=== PATIENT | female | born 1935 | race Caucasian/White ===

== ENCOUNTER 2016-09-18 15:34 | Emergency (ER) | payer OTHER ==
[2016-09-18 15:40] VITALS: PULSE 65; O2SAT 96
[2016-09-18] MEDS ORDERED: TDAP ADULT 0.5 ML INJ (BOOSTRIX) IM ONE (15:57)
--- NOTE | 2016-09-18 17:04 | EDPHY ---
H & P Time Seen by Provider: 09/18/16 15:50 HPI/ROS: This patient tried to get an item out of her dalmation's mouth shortly prior to arrival in the dog and bit her left 2nd finger tip with moderate pain bleeding from associated laceration. She denies any other associated symptoms. No exacerbating factors except some reduction of bleeding with direct pressure prior to arrival. ROS: Neuro: No numbness. Musculoskeletal: No difficulty moving the affected finger. No other associated injuries. 5 point ROS is otherwise negative. Past Medical/Surgical History: She does not recall her last tetanus shot but thinks she is overdue. Smoking Status: Never smoked Physical Exam: Physical Exam Vital signs are normal. General: No acute distress HEENT: Atraumatic. Eyes: Pupils equal and react to light. Extraocular motions are intact. Lungs: No respiratory distress. Cardiac: Brisk capillary refill is intact throughout. Pulses are 2+ and symmetric in the affected extremity. Skin: No rash or pallor. Extremities: Atraumatic normal except for left 2nd finger Left 2nd/index finger exam reveals a full-thickness laceration to the distal phalanx palmar aspect with moderate bleeding 1.5 cm in length Neuro: Alert and oriented x3 with no sensorimotor deficits. Constitutional: Initial Vital Signs Temperature (C) 37.2 C 09/18/16 15:37 Heart Rate 65 09/18/16 15:37 Blood Pressure 139/72 H 09/18/16 15:37 O2 Sat (%) 96 09/18/16 15:37 O2 Delivery Mode Room Air Allergies/Adverse Reactions: bacitracin [From Neosporin (fla-egu-[id number])] Allergy (Intermediate, Verified 07/06 15:41) Rash neomycin sulfate [From Neosporin (dxn-ddc-jeusm)] Allergy (Intermediate, Verified 09/18/16 15:41) Rash polymyxin B [From Neosporin (aba-odm-smpcg)] Allergy (Intermediate, Verified 07/06 15:41) Rash bacitracin zinc [From Neosporin (car-igd-cicfd)] Allergy (Verified 12/26/15 11: 38) hydrochlorothiazide Allergy (Verified 12/26/15 11:38) nickel Allergy (Verified 12/26/15 11:38) nitrofurantoin [From Furadantin] Allergy (Verified 12/26/15 11:38) Home Medications: Medication Instructions Recorded Marika Allergy 10/21/15 Amlodipine Besylate 10/21/15 CeleBREX 10/21/15 Exforge 10-320 mg Tablet 10/21/15 Lexapro 10/21/15 Medroxyprogesterone 10/21/15 PREMARIN 10/21/15 Synthroid 10/21/15 traMADOL 10/21/15 Amox Tr/K Clav (Augmentin) 500 mg PO TID #15 tab 09/18/16 [Augmentin 500/125 MG TAB (*)] MDM/Departure - MDM Diagnostics: Finger x-ray: Negative by my interpretation for fracture. 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 Imaging: I viewed and interpreted images myself Procedures: Digital block: After verbal consent, using a 2% plain lidocaine, 27 gauge needle, chlorhexidine scrub under sterile conditions-3 injections were administered to the base of the affected finger, 8 mL with good effect. Patient tolerated this well. There were no complications. The wound is 1.5 cm full-thickness distal phalanx of 2nd finger with moderate bleeding. Subcutaneous tissues evident but no deeper structures appear to be injured.. The wound was copiously irrigated with saline. The wound was explored for foreign bodies and none were found. The wound was prepped and draped in the normal sterile fashion. I used a Kiera drain as a tourniquet during the procedure due to pulsatile bleeder. This achieved a clean field to suture. The edges were reapproximated using 4 0 Prolene, P3 needle-9 running sutures and 1 interrupted suture with good hemostasis and cosmesis. The patient tolerated the procedure well. There were no complications. After the procedure I removed the Kiera drain which was on for approximately 20 minutes with mild bleeding from the wound but no pulsatile bleeding. Patient is placed in a tube gauze dressing and elevate the hand. I counseled regarding wound care. Medications Given: Discontinued Medications Diphtheria/Tetanus/Acell Pertussis (Boostrix) 0.5 ml IM .ONCE ONE Stop: 09/18/16 15:58 Last Admin: 09/18/16 16:04 Dose: 0.5 ml ED Course/Re-evaluation: Discussion: Patient with significant soft tissue laceration from dog bite but no evidence of bony injury, foreign body or other complicating factors. Will cover her with Augmentin antibiotic - Depart Disposition: Home, Routine, Self-Care Clinical Impression: Dog bite of finger Qualifiers: Encounter type: initial encounter Qualified Code(s): S61.259A - Open bite of unspecified finger without damage to nail, initial encounter Finger laceration Qualifiers: Encounter type: initial encounter Qualified Code(s): S61.219A - Laceration without foreign body of unspecified finger without damage to nail, initial encounter Condition: Good Instructions: Animal Bite (ED), Finger Laceration (ED) Additional Instructions: Diagnoses: 1. Dog bite of finger 2. Finger laceration Plan: Keep the wound clean and dry for the next 2 days elevate the finger as much as possible After that, remove the dressing and clean daily with warm soapy water Tylenol and Celebrex for pain as needed Augmentin antibiotic as prescribed Return for suture removal in 10-12 days Return sooner for redness, discharge or other concerns for infection. Prescriptions: Amox Tr/K Clav (Augmentin) [Augmentin 500/125 MG TAB (*)] 500 mg PO TID #15 tab Referrals: Jorge Dawn MD [Primary Care Provider] - As per Instructions
[2016-09-18 17:51] VITALS: BP 132/78; RESP 16; TEMP 98.4
== END 2016-09-18 17:42 | disposition home or self-care (01) ==
LOC: CED 15:34
PROC: 0HQGXZZ Repair Left Hand Skin, External Approach (ICD-10-PCS; principal; 2016-09-18)
DX: S61.211A Laceration without foreign body of left index finger without damage to nail, initial encounter (principal); Z23 Encounter for immunization; W54.0XXA Bitten by dog, initial encounter
CPT/HCPCS: 73140-PO

== ENCOUNTER 2016-10-14 10:44 | Emergency (ER) | payer OTHER ==
--- NOTE | 2016-10-14 11:29 | EDPHY ---
H & P Time Seen by Provider: 10/14/16 11:05 HPI/ROS: CHIEF COMPLAINT: Finger infection HISTORY OF PRESENT ILLNESS: 81-year-old female presents to the emergency department with a persistent and worsening finger infection. Patient reports on September 19 she was bit on the index finger by her own dog. Laceration was repaired and the patient was placed on Augmentin. She took 3 days of the Augmentin and then was unable to tolerate it secondary to abdominal discomfort. Her primary care physician advises warm soaks only and no further antibiotic treatment. Patient continued with warm soaks but the finger was becoming gradually more swollen, red, and weeping. 6 days ago she saw her primary care physician again was placed on Keflex. Pain she presents today with concerns that the redness has continued to expand and now has started to spread onto the middle finger. No fever. Small amount of drainage has been present in weeping across the pad of the finger and around the nail. REVIEW OF SYSTEMS: Aside from elements discussed in the HPI, a comprehensive 10-point review of systems was reviewed and is negative. PAST MEDICAL HISTORY: Hypertension, arthritis, hypothyroid. No diabetes. SOCIAL HISTORY: . GENERAL APPEARANCE: Pleasant, well-developed, no acute distress. FOCUSED EXAM OF left hand: Index finger is swollen from the tip to the proximal phalanx. Distal phalanx is swollen, erythematous, warm, and weeping. Erythema spreads across the middle phalanx and onto the proximal phalanx along the ulnar aspect with papular erythema. Multiple small papules are present. There is an area faint erythema and papules on the proximal phalanx of the middle finger. Finger tip is diffusely tender no focal abscess. Neurovascular exam: Good capillary refill, normal motor exam, normal neurologic exam. No discomfort with flexion or extension. Smoking Status: Never smoked Constitutional: Initial Vital Signs Heart Rate 68 10/14/16 10:56 Respiratory Rate 18 10/14/16 10:56 Blood Pressure 171/80 H 10/14/16 10:56 O2 Sat (%) 96 10/14/16 10:56 O2 Delivery Mode Room Air Allergies/Adverse Reactions: bacitracin [From Neosporin (llg-ehy-psodn)] Allergy (Intermediate, Verified 07/06 15:41) Rash neomycin sulfate [From Neosporin (xca-itk-kfyxd)] Allergy (Intermediate, Verified 09/18/16 15:41) Rash polymyxin B [From Neosporin (wfh-mfz-iodzc)] Allergy (Intermediate, Verified 07/06 15:41) Rash amoxicillin [From Augmentin] Allergy (Verified 10/14/16 12:54) bacitracin zinc [From Neosporin (dan-bvz-zgodd)] Allergy (Verified 12/26/15 11: 38) clavulanic acid [From Augmentin] Allergy (Verified 10/14/16 12:54) hydrochlorothiazide Allergy (Verified 12/26/15 11:38) nickel Allergy (Verified 12/26/15 11:38) nitrofurantoin [From Furadantin] Allergy (Verified 12/26/15 11:38) Home Medications: Medication Instructions Recorded Marika Allergy 10/21/15 Amlodipine Besylate 10/21/15 CeleBREX 10/21/15 Exforge 10-320 mg Tablet 10/21/15 Lexapro 10/21/15 Medroxyprogesterone 10/21/15 PREMARIN 10/21/15 Synthroid 10/21/15 traMADOL 10/21/15 Keflex 10/14/16 MDM/Departure - MDM ED Course/Re-evaluation: 81-year-old female with a persistent left index finger infection. On examination the finger has diffuse weeping and dumont colored discharge, concerning for staph type of an infection. However there are also areas of papules which appeared to be a contact dermatitis. Patient is allergic to topical antibiotic cream but states that she has non in the house and has been using a dry dressing only. Patient's course was discussed with Dr. Alethea Singh from Infectious Disease. Concern is raised for the possibility of an osteomyelitis. Depth of the initial bite laceration is documented as being full-thickness but no deep structures are involved. Patient reports that the bite was "to the bone". Patient will be referred to [facility] Emergency Department to obtain an MRI. If the MRI demonstrates osteomyelitis patient will need IV antibiotic therapy initiated. Dr. Singh from Infectious Disease will evaluate the patient on her arrival to [facility]'s emergency department for further consultation and disposition. I do not believe the patient has an abscess which requires drainage at this time. Please note: Patient was discharged from the [facility] Emergency Department and proceeded to the [facility] Emergency Department. The discharge information contained in this chart represents the discharge from [facility]. Differential Diagnosis: Differential diagnoses for the patient's symptom complex was considered including but not limited to cellulitis, felon, paronychia, contact dermatitis, osteomyelitis. - Depart Disposition: Home, Routine, Self-Care Clinical Impression: Contact dermatitis Qualifiers: Contact dermatitis type: allergic Contact dermatitis trigger: drugs in contact with skin Qualified Code(s): L23.3 - Allergic contact dermatitis due to drugs in contact with skin Condition: Good Instructions: Contact Dermatitis (ED) Additional Instructions: Stop taking the Keflex. Do not soak or apply any lotions to the finger. Keep the finger wrapped in dry gauze. Followup with Dr. Singh, Infectious Disease. Referrals: Alethea Singh MD [Medical Doctor] - As per Instructions (Infectious Disease)
[2016-10-14 12:32] LABS: ADD DIFF? YES; ADD MORPH? NO; ADD SCAN? NO; ATYPICAL LYMPHOCYTE FLAG 0 (0-99); FRAGMENT RBC FLAG 0 (0-99); HEMATOCRIT 43.3 % (38.0-47.0); HEMOGLOBIN 14.8 g/dL (12.6-16.3); LEFT SHIFT FLG 0 (0-99); LIPEMIA HEMOLYSIS FLAG 90 (0-99); MEAN CELL HEMOGLOBIN CONCENTR. 34.2 g/dL (32.4-36.7); MEAN CELL VOLUME 84.9 fL (81.5-99.8); MEAN PLATELET VOLUME 11.7 fL (8.7-11.7); PLATELET CLUMPS FLAG 0 (0-99); PLATELET COUNT 85 10^3/uL (150-400); RED CELL DISTRIBUTION WIDTH 13.4 % (11.5-15.2)
[2016-10-14 12:34] LABS: ANION GAP 13 mEq/L (8-16); CALCIUM 9.7 mg/dL (8.5-10.4); CARBON DIOXIDE 23 mEq/l (22-31); CHLORIDE 104 mEq/L (97-110); CREATININE 0.7 mg/dL (0.6-1.0); GLOMERULAR FILTRATION RATE > 60; GLUCOSE 79 mg/dL (70-100); POTASSIUM 4.1 mEq/L (3.5-5.2); SODIUM 140 mEq/L (134-144)
[2016-10-14 12:56] VITALS: TEMP 97.9
[2016-10-14 13:10] LABS: PLATELET ESTIMATE DECREASED (ADEQ)
--- NOTE | 2016-10-14 13:33 | EDPHY ---
H & P Smoking Status: Never smoked Time Seen by Provider: 10/14/16 11:14 HPI/ROS: CHIEF COMPLAINT: Finger swelling HISTORY OF PRESENT ILLNESS: The patient is an 81-year-old female that sustained a dog bite to her left index finger on 09/18. She was seen at [place] and had sutures placed. She was started on Augmentin but was unable to tolerate the Augmentin and was placed on Keflex. She has been on Keflex for 6 days now. Her finger has increased in redness, swelling, and started weeping. She states the finger itches and only complains of pain when the hand is not elevated. She denies fever. ROS: No numbness, weakness, excessive bleeding, syncopal episode, other injury. (Kim Solomon) Past Medical/Surgical History: Hypertension, Arthritis, Hypothyroid (Kim Solomon) Social History: . (Kim Solomon) Physical Exam: Alert and oriented x3, no acute distress Left index finger: Mild erythema without tenderness of the finger tip. Multiple small vesicles on the entire digit. Full range of motion of finger without pain. Neuro: Motor and sensory intact Vascular: Capillary refill brisk distally (Kim Solomon) Constitutional: Initial Vital Signs Heart Rate 68 10/14/16 10:56 Respiratory Rate 18 10/14/16 10:56 Blood Pressure 171/80 H 10/14/16 10:56 O2 Sat (%) 96 10/14/16 10:56 O2 Delivery Mode Room Air Allergies/Adverse Reactions: bacitracin [From Neosporin (wdq-qoq-uurak)] Allergy (Intermediate, Verified 07/06 15:41) Rash neomycin sulfate [From Neosporin (ovg-xgs-vniqj)] Allergy (Intermediate, Verified 09/18/16 15:41) Rash polymyxin B [From Neosporin (tbm-mwd-nlqzd)] Allergy (Intermediate, Verified 07/06 15:41) Rash amoxicillin [From Augmentin] Allergy (Verified 10/14/16 12:54) bacitracin zinc [From Neosporin (cay-sdg-yynlx)] Allergy (Verified 12/26/15 11: 38) clavulanic acid [From Augmentin] Allergy (Verified 10/14/16 12:54) hydrochlorothiazide Allergy (Verified 12/26/15 11:38) nickel Allergy (Verified 12/26/15 11:38) nitrofurantoin [From Furadantin] Allergy (Verified 12/26/15 11:38) Home Medications: Medication Instructions Recorded Marika Allergy 10/21/15 Amlodipine Besylate 10/21/15 CeleBREX 10/21/15 Exforge 10-320 mg Tablet 10/21/15 Lexapro 10/21/15 Medroxyprogesterone 10/21/15 PREMARIN 10/21/15 Synthroid 10/21/15 traMADOL 10/21/15 Keflex 10/14/16 Medical Decision Making - Diagnostics Imaging Results: Imaging Impressions Upper Extremity MRI 10/14/16 12:03 Impression: 1. Suspect osteomyelitis of the distal phalanx and distal aspect of the middle phalanx with possible infected distal interphalangeal joint space. 2. Diffuse cellulitis. No abscess. Comment: The imaging was reviewed with Dr. Alethea Singh shortly after study completion. ED Course/Re-evaluation: The patient was sent here from [place] with left index swelling, redness, and weeping after sutured dog bite 09/18. The finger looks more like a contact dermatitis instead of infection. She is allergic to Neosporin, but does not have any in her house nor has she put anything on her finger except a dry bandage. I spoke to Dr. Singh with infectious disease, she will assess the patient in the ED. Labs are unremarkable. WBC is normal. The patient was evaluated by Dr. Singh, she would like to continue with the MRI and discontinue Keflex. Patient is safe for discharge home. (Kim Solomon) 4:[address] Singh is here evaluating the patient. We have reviewed her MRI. She does have osteomyelitis. She is requesting a PICC line and Invanz and that the patient return here for Invanz every 24 hours until that can be seen in the infusion clinic. Patient is agreeable to this. They do not require admission. 8:45 p.m. the patient's PICC line Keppra oozing blood. Whose eventually undressed and a figure 8 suture placed around the exit. This controlled the bleeding. The Biopatch was replaced and the clip was replaced and covered with Tegaderm in sterile fashion. (Emilio Coker) Differential Diagnosis: Partial list of the Differential diagnosis considered include but were not limited to; osteomyelitis, cellulitis, contact dermatitis and although unlikely based on the history and physical exam, I also considered joint infection, fracture. (Emilio Coker) - Data Points Laboratory Results: Laboratory Results 10/14/16 12:10 10/14/16 12:10 10/14/16 10/14/16 10/14/16 17:35 12:10 12:10 WBC 5.68 10^3/uL 10^3/uL (3.80-9.50) RBC 5.10 10^6/uL 10^6/uL (4.18-5.33) Hgb 14.8 g/dL g/dL (12.6-16.3) Hct 43.3 % % (38.0-47.0) MCV 84.9 fL fL (81.5-99.8) MCH 29.0 pg pg (27.9-34.1) MCHC 34.2 g/dL g/dL (32.4-36.7) RDW 13.4 % % (11.5-15.2) Plt Count 85 10^3/uL L 10^3/uL (150-400) MPV 11.7 fL fL (8.7-11.7) Neut % (Auto) Not Reported Lymph % (Auto) Not Reported Pratt % (Auto) Not Reported Eos % (Auto) Not Reported Baso % (Auto) Not Reported Nucleat RBC Rel Count 0.0 % % (0.0-0.2) Absolute Neuts (auto) Not Reported Absolute Lymphs (auto) Not Reported Absolute Monos (auto) Not Reported Absolute Eos (auto) Not Reported Absolute Basos (auto) Not Reported Absolute Nucleated RBC 0.00 10^3/uL 10^3/uL (0-0.01) Immature Gran % Not Reported Seg Neutrophils % 34 % % Band Neutrophils % 2 % % Lymphocytes % 44 % % Monocytes % 20 % % Immature Gran # Not Reported Absolute Seg Neuts 1.9 K/MM3 K/MM3 (1.8-7) Absolute Band Neuts 0.1 K/MM3 K/MM3 (0-0.7) Absolute Lymphocytes 2.5 K/mm3 K/mm3 (1.0-4.8) Absolute Monocytes 1.1 K/mm3 H K/mm3 (0-0.8) Atypical Lymphocytes 1+ H Platelet Estimate DECREASED L (ADEQ) ESR Sodium 140 mEq/L mEq/L (134-144) Potassium 4.1 mEq/L mEq/L (3.5-5.2) Chloride 104 mEq/L mEq/L (97-110) Carbon Dioxide 23 mEq/l mEq/l (22-31) Anion Gap 13 mEq/L mEq/L (8-16) BUN 13 mg/dL mg/dL (7-23) Creatinine 0.7 mg/dL mg/dL (0.6-1.0) Estimated GFR > 60 Glucose 79 mg/dL mg/dL (70-100) Calcium 9.7 mg/dL mg/dL (8.5-10.4) C-Reactive Protein 7.3 mg/L mg/L (<10.0) 10/14/16 12:00 WBC RBC Hgb Hct 43.3 % % (38.0-47.0) MCV MCH MCHC RDW Plt Count MPV Neut % (Auto) Lymph % (Auto) Pratt % (Auto) Eos % (Auto) Baso % (Auto) Nucleat RBC Rel Count Absolute Neuts (auto) Absolute Lymphs (auto) Absolute Monos (auto) Absolute Eos (auto) Absolute Basos (auto) Absolute Nucleated RBC Immature Gran % Seg Neutrophils % Band Neutrophils % Lymphocytes % Monocytes % Immature Gran # Absolute Seg Neuts Absolute Band Neuts Absolute Lymphocytes Absolute Monocytes Atypical Lymphocytes Platelet Estimate ESR 3 MM/HR MM/HR (0-30) Sodium Potassium Chloride Carbon Dioxide Anion Gap BUN Creatinine Estimated GFR Glucose Calcium C-Reactive Protein Medications Given: Discontinued Medications Ertapenem 1 gm/ Sodium (Chloride) 100 mls @ 200 mls/hr IV EDNOW ONE PRN Reason: Protocol Stop: 10/14/16 16:58 Last Admin: 10/14/16 18:36 Dose: 100 mls Departure - Departure Disposition: Home, Routine, Self-Care Clinical Impression: Osteomyelitis Qualifiers: Osteomyelitis type: unspecified type Osteomyelitis location: hand Laterality: left Qualified Code(s): M86.9 - Osteomyelitis, unspecified Condition: Good Instructions: Osteomyelitis (ED) Additional Instructions: Return every 24 hours for a infusion of Invanz until you can be seen in the Infectious Disease Clinic to have your infusion there. Referrals: Alethea Singh MD [Medical Doctor] - As per Instructions (Infectious Disease) Report Scribed for: Kim Solomon Report Scribed by: Lissa Hemphill Date of Report: 10/14/16 Time of Report: 13:36 Physician Review and Approval Statement: 10/14/16 13:36 Portions of this note were transcribed by a director of medical staff services. I personally performed the history, physical exam, and medical decision-making; and confirmed the accuracy of the information in the transcribed note. (Kim Solomon)
--- NOTE | 2016-10-14 15:02 | GCON ---
[f rep st] CONSULTATION INFECTIOUS DISEASE CONSULT DATE OF CONSULTATION: 10/14/2016 REFERRING PHYSICIAN: Kim Solomon MD REASON FOR CONSULT: To assist in the management of this 81-year-old female with persistent left hand 2nd digit swelling after sustaining a dog bite earlier this month. HISTORY OF PRESENT ILLNESS: This patient is an 81-year-old female whose previous medical history is notable for the followin. Hypothyroidism. 2. Osteoarthritis. 3. History of thrombocytopenia. Regarding her present issue, the patient states that she has a dalmatian (the patient actually has 2 dalmatians) at home, and on September 18, 2016 she noticed that one of her dogs was chewing on something that she did not recognize. She put her hand into the dog's mouth to remove the object, and at that moment, the dog bit down on the object, biting her 2nd finger. The dog did not mean to bite her , per se. She removed her hand, and came to [facility] where she was found to have a full thickness laceration to the distal phalanx, palmar aspect of the left 2nd index finger. The incision was approximately 5 cm in length. This was copiously irrigated by Dr. Hemant Zepeda, and his notes describe the wound as the following: "Subcutaneous tissues were evident, but no deeper structures appeared to be injured." The wound was explored for foreign bodies and none were found. It was copiously cleaned and sutured with good hemostasis. An x-ray revealed no foreign body either. The patient was given a tetanus booster and a prescription for Augmentin 500 mg p.o. three times daily. The patient was referred back to her primary care doctor, Dr. Dawn. The patient states that she took the Augmentin 500 mg p.o. three times daily for approximately 3 days, but became nauseated from it. She saw her primary care doctor, who took her off antibiotics and told her to soak it only. She did this 4-5 times per day for 5 minutes at a time. She states that when she soaked it that her finger looked worse, with increasing erythema. 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 She states that she has also been using different lotions on the finger, including Jergens, Oil of Olay, Curel, etc. She does have a history of an allergy to bacitracin and Neosporin, so has not been using this. She has been using Telfa Band-Aids from the grocery store. She does not know whether or not these are impregnated with antibiotics. She has not used these Band-Aids in the past. She states that she went back to her primary care doctor on approximately September out of concern for ongoing swelling. He started her on Keflex 500 mg 4 times a day. She has been on this now for 6 days with no change. She has also noticed the development of a small vesicular pruritic eruption along the inner aspect, lateral side of her 2nd digit. She states that the digit itself is pruritic. She has not had fevers or chills, but states that the finger remains swollen and has not really improved. Because of that, the patient came to [facility] this morning, and I was contacted on the phone by Dr. Catherine Rushing. I recommended an MRI, given what I was told of the patient's history, and the patient is now here in [facility] Emergency Department. She has not yet had the MRI. The patient is otherwise feeling well. Otherwise, the patient states that she has been in good health. She had a dental implant placed 5 days ago. REVIEW OF SYSTEMS: Aside from what is outlined above, 10 systems are reviewed and all are negative. PREVIOUS MEDICAL HISTORY: As outlined above. ALLERGIES: Bacitracin, neomycin, polymyxin B, hydrochlorothiazide, nickel, nitrofurantoin. MEDICATIONS: Include Keflex 500 mg p.o. four times daily, Marika, amlodipine, Lexapro, Premarin, Synthroid and tramadol. SOCIAL HISTORY: The patient is and lives in [place]. She has 2 dalmatians. No tobacco, alcohol or illicit substances. No recent travel within or outside the [place]. She has not had her hands in any dirt or water, other than tap water from her home. IMAGING: Finger x-ray, as outlined above from September 18, 2016, showed no foreign body. IMPRESSION: 81-year-old female status post reported superficial dog bite on September 18, 2016 to the distal phalanx of the left 2nd digit. This was copiously cleaned and sutured, without evidence of deeper structure involvement. She took 3 days of Augmentin, which was discontinued secondary to nausea and vomiting. She has been soaking it for the past 2 weeks, but because of lack of improvement, was restarted on antibiotics in the form of Keflex that she has taken for the past 6 days without change in appearance of the finger, per se. She now presents with an ongoing swollen digit with some dusky erythema, but minimal tenderness. She also appears to have an allergic phenomenon of the skin with an irritant contact dermatitis with pruritic papules along the inner aspect of her finger. This could be related to the lotions she is using or Band-Aids. This does not look consistent with herpetic darlene. No tenosynovitis, clinically. At this point in time, I do feel that it is prudent to obtain an MRI to rule out deeper structural involvement of the finger given the prolonged swelling. That being said, I would expect the patient to have a more severe presentation if she had ongoing deeper nidus of infection with pasteurella, anaerobes, staphylococci or streptococci. Notably, she is not immunocompromised, other than her age. PLAN: 1. Obtain MRI to ensure there is no deeper structural involvement. 2. If MRI is negative, would stop antibiotics and continue with arm elevation, and discontinue all lotions and bandages other than gauze. 3. We will have the patient seen in our outpatient clinic. 4. Tetanus is up to date. Thank you very much for consulting Infectious Diseases. /[id number]/MODL OSMAN
[2016-10-14] MEDS ORDERED: GADOBUTROL 10 ML VIAL IVP ONE (15:24)
[2016-10-14] MEDS ORDERED: ERTAPENEM 1 GM in NS 100 ML IV ONE (16:29)
[2016-10-14 17:36] VITALS: O2SAT 95
[2016-10-14] MEDS ORDERED: ALTEPLASE 2 MG VIAL IVP PRN (17:38)
[2016-10-14 17:55] LABS: HEMATOCRIT 43.3 % (38.0-47.0)
[2016-10-14 21:37] VITALS: BP 137/77; PULSE 72; RESP 18
== END 2016-10-14 21:15 | disposition home or self-care (01) ==
LOC: CED 10:44
DX: M86.9 Osteomyelitis, unspecified (principal); I10 Essential (primary) hypertension
CPT/HCPCS: 73220; 77001; 96365; 99285; A9585; C1751; J1335; 80048-PO; 85025-PO

== ENCOUNTER 2016-10-15 03:18 | Emergency (ER) | payer OTHER ==
[2016-10-15 03:24] VITALS: BP 155/63; PULSE 61; RESP 16; TEMP 97.5; O2SAT 98
--- NOTE | 2016-10-15 04:20 | EDPHY ---
H & P Stated Complaint: PICC line incerted last night, bleeding at incertion site Time Seen by Provider: 10/15/16 03:46 HPI/ROS: HPI The patient presents with bleeding from her right upper extremity PICC line which was placed yesterday afternoon. She initially had some bleeding after the placement and a [id number] suture was placed. She went home and there was no bleeding, however awoke this morning with bleeding, which now seems to have stopped. She does have thrombocytopenia. The PICC line was placed for osteomyelitis of her digit. REVIEW OF SYSTEMS Constitutional: No fever, no chills. Skin: No rashes. Neurological: No headache. PMHx: Osteomyelitis of her digit receiving antibiotics currently Soc Hx: Lives at home with her PHYSICAL General Appearance: Alert, no distress Eyes: Pupils equal and round Respiratory: Breathing comfortably Neurological: A&O, moves all extremities Skin: Warm and dry, no rashes Extremities: Right upper extremity with PICC line in place, there is a large amount of blood clot under her Tegaderm dressing which measures about 3 x 3 cm, no active bleeding is appreciated, there are no skin changes Psychiatric: Patient is oriented X 3, there is no agitation Source: Patient Exam Limitations: No limitations - Personal History Current Tetanus/Diphtheria Vaccine: Yes Current Tetanus Diphtheria and Acellular Pertussis (TDAP): Yes Tetanus Vaccine Date: 2016 - Medical/Surgical History Hx Asthma: No Hx Chronic Respiratory Disease: No Hx Diabetes: No Hx Cardiac Disease: No Hx Renal Disease: No Hx Cirrhosis: No Hx Alcoholism: No Hx HIV/AIDS: No Hx Splenectomy or Spleen Trauma: No Other PMH: HTN, arthritis, hypothyroid. - Social History Smoking Status: Never smoked Constitutional: Initial Vital Signs Temperature (C) 36.4 C 10/15/16 03:22 Heart Rate 61 10/15/16 03:22 Respiratory Rate 16 10/15/16 03:22 Blood Pressure 155/63 H 10/15/16 03:22 O2 Sat (%) 98 10/15/16 03:22 O2 Delivery Mode Room Air Allergies/Adverse Reactions: bacitracin [From Neosporin ([id number]-imd-[id number])] Allergy (Intermediate, Verified 16:04) Rash neomycin sulfate [From Neosporin (mni-syz-jaato)] Allergy (Intermediate, Verified 10/16/16 16:04) Rash polymyxin B [From Neosporin ([id number]-ump-[id number])] Allergy (Intermediate, Verified 16:04) Rash amoxicillin [From Augmentin] Allergy (Verified 10/16/16 16:04) bacitracin zinc [From Neosporin (vlb-hwv-brork)] Allergy (Verified 10/16/16 16: 04) clavulanic acid [From Augmentin] Allergy (Verified 10/16/16 16:04) hydrochlorothiazide Allergy (Verified 10/16/16 16:04) nickel Allergy (Verified 10/16/16 16:04) nitrofurantoin [From Furadantin] Allergy (Verified 10/16/16 16:04) Home Medications: Medication Instructions Recorded Marika Allergy 10/21/15 Amlodipine Besylate 10/21/15 CeleBREX 10/21/15 Exforge 10-320 mg Tablet 10/21/15 Lexapro 10/21/15 Medroxyprogesterone 10/21/15 PREMARIN 10/21/15 Synthroid 10/21/15 traMADOL 10/21/15 Keflex 10/14/16 Medical Decision Making Differential Diagnosis: This is an 81-year-old female with PICC line insertion yesterday, history of thrombocytopenia, with bleeding at the site of her PICC line. On exam, the bleeding is now controlled, however there is quite a bit of clotted blood surrounding the insertion site. In the emergency room, the dressing was removed, the clot was removed as well. Surgical foam was used around the insertion site to prevent any future bleeding. I was not able to place the Biopatch at this time, however the patient will return to the emergency room this evening for her 2nd antibiotic dose at that time a new Biopatch can be placed once the foam has absorbed somewhat. There are no signs of PICC line infection at this time. Departure - Departure Disposition: Home, Routine, Self-Care Clinical Impression: Bleeding from PICC line Condition: Good Instructions: Peripherally Inserted Central Catheters and Midline Catheters (ED ) Referrals: Jorge Dawn MD [Primary Care Provider] - As per Instructions
== END 2016-10-15 04:54 | disposition home or self-care (01) ==
DX: T82.838A Hemorrhage due to vascular prosthetic devices, implants and grafts, initial encounter (principal); I10 Essential (primary) hypertension; Y82.8 Other medical devices associated with adverse incidents

== ENCOUNTER 2016-10-15 16:14 | Emergency (ER) | payer OTHER ==
[2016-10-15] MEDS ORDERED: ERTAPENEM 1 GM in NS 100 ML IV ONE (17:03)
--- NOTE | 2016-10-15 17:03 | EDPHY ---
H & P Smoking Status: Never smoked Time Seen by Provider: 10/15/16 16:58 HPI/ROS: CHIEF COMPLAINT: Finger swelling, here for IV Invanz HISTORY OF PRESENT ILLNESS: 81-year-old female sustained a dog bite to her left index finger on 09/18/2016. She has subsequently developed suspected osteomyelitis of the distal phalanx and distal aspect of middle phalanx of the same digit and was seen in the emergency department yesterday for same complaint , had infectious disease consultation, MRI is recommended by Infectious Disease that she be started on IV Invanz 1 g via PICC line. She received IV Invanz yesterday returns for IV Invanz today (). Patient states that she is feeling well, finger continues as before with no acute complaints. No fever no chills no nausea no vomiting. PICC line is not bleeding. PHYSICAL EXAM (Prior to examination, patient consented to physical exam, hands were washed and my usual and customary physical exam procedures followed) 1) GENERAL: Well-developed, well-nourished, alert and oriented. Appears to be in no acute distress. 2) HEAD: Normocephalic 3) HEENT: sclera anicteric 4) LUNGS: Breathing comfortably. 5) SKIN: Left index finger erythema without tenderness of the distal phalanx. Full range of motion finger without pain negative kanavel. (Lobito,Chio Vika) Constitutional: Initial Vital Signs Temperature (C) 36.5 C 10/15/16 16:15 Heart Rate 78 10/15/16 16:15 Respiratory Rate 18 10/15/16 16:15 Blood Pressure 115/57 L 10/15/16 16:15 O2 Sat (%) 96 10/15/16 16:15 O2 Delivery Mode Room Air Allergies/Adverse Reactions: bacitracin [From Neosporin (qam-adu-lvqed)] Allergy (Intermediate, Verified 16:20) Rash neomycin sulfate [From Neosporin (gmd-iih-sscxu)] Allergy (Intermediate, Verified 10/15/16 16:20) Rash polymyxin B [From Neosporin (yfc-xlt-jslbn)] Allergy (Intermediate, Verified 16:20) Rash amoxicillin [From Augmentin] Allergy (Verified 10/15/16 16:20) bacitracin zinc [From Neosporin (thv-fxp-itavs)] Allergy (Verified 10/15/16 16: 20) clavulanic acid [From Augmentin] Allergy (Verified 10/15/16 16:20) hydrochlorothiazide Allergy (Verified 10/15/16 16:20) nickel Allergy (Verified 10/15/16 16:20) nitrofurantoin [From Furadantin] Allergy (Verified 10/15/16 16:20) Home Medications: Medication Instructions Recorded Marika Allergy 10/21/15 Amlodipine Besylate 10/21/15 CeleBREX 10/21/15 Exforge 10-320 mg Tablet 10/21/15 Lexapro 10/21/15 Medroxyprogesterone 10/21/15 PREMARIN 10/21/15 Synthroid 10/21/15 traMADOL 10/21/15 Keflex 10/14/16 MDM/Departure - MDM Medications Given: Discontinued Medications Ertapenem 1 gm/ Sodium (Chloride) 100 mls @ 200 mls/hr IV EDNOW ONE PRN Reason: Protocol Stop: 10/15/16 17:32 Last Admin: 10/15/16 17:36 Dose: 100 mls ED Course/Re-evaluation: Today is holiday. Patient has received her IV Invanz 1 g. Was initially recommended she follow-up tomorrow with the [facility] however she has been informed previously by Dr. GARCIA that she may not be able to get into the clinic tomorrow for infusion due to scheduling as tomorrow is the day after . If she is unable to get an appointment in the clinic tomorrow she will return to the emergency department for IV Invanz and will receive further infusions at the [facility] . Recommend she call the clinic in the morning. Care and management in consultation with secondary supervising physician Dr Rushing who independently evaluated patient. (Chio Robin) The patient was evaluated and managed by the Physician Gas Welder/ Nurse Practitioner. [I discussed the patient's presentation and course with the midlevel provider with them and agree with the evaluation.] My co-signature indicates that I have reviewed this chart and I agree with the findings and plan of care as documented. I am the secondary supervising physician. I saw this patient yesterday primarily at the [facility] prior to her diagnosis of osteomyelitis. She reports no pain in the finger. She received a dose of IV antibiotics and will be discharged to return to begin tomorrow for her ongoing IV antibiotic therapy (Catherine Rushing) - Depart Disposition: Home, Routine, Self-Care Clinical Impression: Osteomyelitis of finger of left hand Condition: Good Instructions: Osteomyelitis (ED) Referrals: [facility] (ED,. [Edm Groups for Call Sched] - 1 day without fail (If you cannot get into the clinic tomorrow return to the ER tomorrow afternoon.)
[2016-10-15 18:42] VITALS: BP 123/67; PULSE 56; RESP 15; TEMP 97.2; O2SAT 95
== END 2016-10-15 18:42 | disposition home or self-care (01) ==
DX: M86.9 Osteomyelitis, unspecified (principal)
CPT/HCPCS: 96374; 99284; J1335

== ENCOUNTER 2016-10-16 15:48 | Emergency (ER) | payer OTHER ==
[2016-10-16 16:07] VITALS: BP 145/69; PULSE 66; RESP 17; TEMP 98.1; O2SAT 96
[2016-10-16] MEDS ORDERED: ERTAPENEM 1 GM in NS 100 ML IV ONE (17:38)
--- NOTE | 2016-10-16 18:16 | EDPHY ---
H & P Time Seen by Provider: 10/16/16 16:10 HPI/ROS: CHIEF COMPLAINT: Here for repeat IV antibiotics HISTORY OF PRESENT ILLNESS: 85-year-old female well known to myself with osteomyelitis of the left index finger following a dog bite. This is day 3 of IV antibiotics. Patient tells me she has an appointment tomorrow at [facility] in order to facilitate outpatient IV therapy. No new complaints. No fevers or chills. REVIEW OF SYSTEMS: Aside from elements discussed in the HPI, a comprehensive 10-point review of systems was reviewed and is negative. PAST MEDICAL HISTORY: Hypothyroidism SOCIAL HISTORY: . GENERAL APPEARANCE: Pleasant, alert, resting comfortably. FOCUSED EXAM OF left upper extremity: Generalized erythema of the distal phalanx, left finger. Moderate swelling of the digit. Erythema is present along the ulnar aspect of the digit. Overall appearance is slightly improved. Neurovascular exam: Good capillary refill, normal motor exam, normal neurologic exam. Smoking Status: Never smoked Constitutional: Initial Vital Signs Temperature (C) 36.7 C 10/16/16 16:05 Heart Rate 66 10/16/16 16:05 Respiratory Rate 17 10/16/16 16:05 Blood Pressure 145/69 H 10/16/16 16:05 O2 Sat (%) 96 10/16/16 16:05 O2 Delivery Mode Room Air Allergies/Adverse Reactions: bacitracin [From Neosporin ([id number]-[id number])] Allergy (Intermediate, Verified 16:04) Rash neomycin sulfate [From Neosporin (sly-ork-qumjj)] Allergy (Intermediate, Verified 10/16/16 16:04) Rash polymyxin B [From Neosporin (jra-ovp-vajml)] Allergy (Intermediate, Verified 16:04) Rash amoxicillin [From Augmentin] Allergy (Verified 10/16/16 16:04) bacitracin zinc [From Neosporin (tca-pqu-jsqqx)] Allergy (Verified 10/16/16 16: 04) clavulanic acid [From Augmentin] Allergy (Verified 10/16/16 16:04) hydrochlorothiazide Allergy (Verified 10/16/16 16:04) nickel Allergy (Verified 10/16/16 16:04) nitrofurantoin [From Furadantin] Allergy (Verified 10/16/16 16:04) Home Medications: Medication Instructions Recorded Marika Allergy 10/21/15 Amlodipine Besylate 10/21/15 CeleBREX 10/21/15 Exforge 10-320 mg Tablet 10/21/15 Lexapro 10/21/15 Medroxyprogesterone 10/21/15 PREMARIN 10/21/15 Synthroid 10/21/15 traMADOL 10/21/15 Keflex 10/14/16 MDM/Departure - [facility] ED Course/Re-evaluation: 1 g of Invanz was administered. Patient has arrangements to begin her antibiotic as an outpatient starting tomorrow discharged in stable condition. - Depart Disposition: Home, Routine, Self-Care Clinical Impression: Osteomyelitis Qualifiers: Osteomyelitis type: other Osteomyelitis location: hand Laterality: left Qualified Code(s): M86.8X4 - Other osteomyelitis, hand Condition: Good Instructions: Osteomyelitis (ED) Additional Instructions: Follow up for outpatient antibiotic therapy as previously arranged. Referrals: Jorge Dawn MD [Primary Care Provider] - As per Instructions
== END 2016-10-16 18:52 | disposition home or self-care (01) ==
DX: M86.8X4 Other osteomyelitis, hand (principal)
CPT/HCPCS: 96365; 99284; J1335